=== PATIENT | female | born 1965 | race Caucasian/White ===

== ENCOUNTER 2020-10-05 23:54 | Emergency (ER) | payer OTHER ==
[~2020-10-05] VITALS: Ht 152.4 cm; Wt 62.3 kg
--- NOTE | ~2020-10-05 | EMS ---
[place] [address] EMS Patient Care Report Name: CECILY HOOK Room #: [facility]..#: [id number] Admission: Attend Phys: Discharge: Date of : 65 Report #: [id number] THIS REPORT FOR: //name// Report Transmitted: 10/05/2020 23:28 EMS Care Summary [place], [place]/[facility] Incident [id number] @ 10/05/2020 22:37 Incident Location [address] [place] [address] Patient CECILY HOOK Female, 55 Years 1965 Patient Address [address] [place] [address] Patient History Diabetes,Rheumatoid Arthritis, Patient Allergies Penicillin allergy,Sulfa, Chief Complaint HYPOGLYCEMIA Disposition Transported No Lights/[place] Dispatch Reason Diabetic Problem Transported To [facility] Narrative DISPATCHED TO A DIABETIC PROBLEM. ARRIVED ON SCENE TO BE LED TO FEMALE PATIENT IN THE BACK BEDROOM STANDING WITH HER HEAD DOWN ON THE BED BEING ASSESSED BY FIRE CREW. FAMILY STATED THAT WHEN THEY FOUND HER SHE WAS DIFFICULT TO ARROUSE. SHE IS A KNOWN DIABETIC AND FAMILY REPORTED BRINGING FOOD TO HER ABOUT TEN AM BUT WHEN THEY ARRIVED BACK AT THE HOUSE ABOUT ONE HOUR PRIOR TO EMS ARRIVAL THE FOOD WAS UNEATEN. THEY WERE ABLE TO GET HER TO DRINK A LITTLE JUICE BUT PATIENT [address] [address] EMS Patient Care Report Name: CECILY HOOK Room #: [facility]#: [id number] Admission: Attend Phys: Discharge: Date of : 65 Report #: [id number] REFUSED TO EAT FOR THEM. HER BLOOD GLUCOSE WAS CHECKED BY FIRE CREW PRIOR TO EMS ARRIVAL. SHE WAS COACHED IN EATING ORAL GLUCOSE AND DRINKING MORE SODA, BUT CONTINUED TO REFUSE TO EAT. PATIENT'S VITALS WERE OBTAINED AND HER BLOOD GLUCOSE WAS CHECKED. PATIENT WAS COACHED IN EATING AN ADDITIONAL ORAL GLUCOSE. HER VITALS WERE REASSESSED AND HER GLUCOSE LEVEL CHECKED AFTER TIME. PATIENT'S GLUCSE REMAINED LOW, SHE CONTINUED TO REFUSE TO EAT, AND SHE REMAINED CONFUSED. SHE WAS ASSISTED IN WALKING TO THE COT, SEATED, SECURED WITH STRAPS, AND MOVED TO THE AMBULANCE. PATIENT VITALS WERE REOBTAINED, SHE WAS PLACED ON A 3 LEAD, AND AN IV WAS ESTABLISHED. HER GLUCOSE WAS CHECKED AGAIN. SHE WAS TRANSPORTED TO THE HOSPITAL WITH VITALS AND INTERVENTIONS MONITORED. UPON ARRIVAL AT THE HOSPITAL PATIENT WAS MOVED INTO ED ROOM 8 ON THE COT AND LIFTED OVER TO THE HOSPITAL BED. PATIENT CARE WAS TURNED OVER TO ED NURSING STAFF. Initial Vitals @23:33P: 228,SpO2: 98, @23:41P: 69,BP: 127/61,CO: 2,SpO2: 98, @23:14P: 83,BP: 134/76,CO: 0,SpO2: 98, @23:31P: 81,BP: 153/60,Glucose: 145,CO: 3,SpO2: 97, @23:33P: 79, @23:03P: 79,Glucose: 39,CO: 5,SpO2: 95, @23:13P: 69,R: 16,BP: 169/140,Pain: 4/10,GCS: 14,Glucose: 36,SpO2: 99,Revised Trauma: 12,DE Suspected: false @22:52P: 79,R: 16,BP: 139/74,GCS: 14,SpO2: 96,Revised Trauma: 12, @23:48P: 76,R: 16,BP: 121/65,Pain: 4/10,GCS: 14,CO: 4,SpO2: 96,Revised Trauma: 12, @PTAGCS: 14,Glucose: 26, Assessments @23:48MENTAL:Person Oriented,Time Oriented,Place Oriented,SKIN:HEENT:Head/Face: No Abnormalities,Neck/Airway: No Abnormalities,LUNG SOUNDS:General: No Abnormalities,Left Upper: No Abnormalities,Right Upper: No Abnormalities,Left Lower: No Abnormalities,Right Lower: No Abnormalities,ABDOMEN:General: No Abnormalities,Left Upper: No Abnormalities,Right Upper: No Abnormalities,Left Lower: No Abnormalities,Right Lower: No Abnormalities,PELVIS//GI:No Abnormalities,EXTREMITIES:Capillary Refill: Right Upper: < 2 Sec,Left Arm: No Abnormalities,Right Arm: No Abnormalities,Left Leg: No Abnormalities,Right Leg: No Abnormalities,PULSE:Radial: 2+ Normal,NEURO:Slurred Speech, Impression Diabetic Hypoglycemia Procedures @22:48ALS AssessmentResponse: UnchangedSucceeded@22:49Oral Glucose - 31 Grams (gms) - OralResponse: Improved@23:36Saline Lock 0cc (20 ga) Site: Antecubital-RightResponse: UnchangedFailed@23:20Oral Glucose - 31 Grams (gms) - OralResponse: Improved@23:133-Lead ECGResponse: UnchangedSucceeded@23:38Saline 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,BP: / M,PULSE: ,RR: R,SPO2: Ox,ETCO2: ,B,PAIN: ,GCS: 14, 22:35,Call Received 22:35,Dispatch Notified 22:37,Dispatched 22:37,En Route 22:46,On Scene 22:48,At Patient 22:48,ALS Assessment,Response: UnchangedSucceeded, 22:49,Oral Glucose - 31 Grams (gms) - Oral,Response: Improved 22:52,BP: 139/74 M,PULSE: 79,RR: 16 R,SPO2: 96 Ox,ETCO2: ,BG: ,PAIN: ,GCS: 14, 23:03,BP: / M,PULSE: 79,RR: R,SPO2: 95 Ox,ETCO2: ,B,PAIN: ,GCS: , 23:13,3-Lead ECG,Response: UnchangedSucceeded, 23:13,BP: 169/140 M,PULSE: 69,RR: 16 R,SPO2: 99 Ox,ETCO2: ,B,PAIN: 4,GCS: 14, 23:14,BP: 134/76 M,PULSE: 83,RR: R,SPO2: 98 Ox,ETCO2: ,BG: ,PAIN: ,GCS: , 23:20,Oral Glucose - 31 Grams (gms) - Oral,Response: Improved 23:31,BP: 153/60 M,PULSE: 81,RR: R,SPO2: 97 Ox,ETCO2: ,B,PAIN: ,GCS: , 23:33,BP: / M,PULSE: 228,RR: R,SPO2: 98 Ox,ETCO2: ,BG: ,PAIN: ,GCS: , 23:33,BP: / M,PULSE: 79,RR: R,SPO2: Ox,ETCO2: ,BG: ,PAIN: ,GCS: , 23:36,Saline Lock 0cc 20 ga Site: Antecubital-Right,Response: UnchangedFailed, 23:38,Saline Lock 20cc 20 ga Site: Antecubital-Left,Response: UnchangedSucceeded, 23:39,Depart Scene 23:41,BP: 127/61 M,PULSE: 69,RR: R,SPO2: 98 Ox,ETCO2: ,BG: ,PAIN: ,GCS: , 23:48,BP: 121/65 M,PULSE: 76,RR: 16 R,SPO2: 96 Ox,ETCO2: ,BG: ,PAIN: 4,GCS: 14, 23:50,At Destination 00:03,Call Closed Disclaimer v1.1 Copyright 2020 [employer] This EMS Care Summary contains data elements from the applicable legal record (which may be displayed differently). It is designed to provide pertinent information for the following purposes: continuity of care, clinical quality, and state data reporting. The complete legal record is available to ED staff and administrators of the receiving hospital in [employer] Patient Tracker. All data is provided "as is."
[2020-10-06 00:44] LABS: ALBUMIN 3.3 g/dL (3.4-5.0); CALCIUM 8.8 mg/dL (8.5-10.1); TOTAL BILIRUBIN 0.2 mg/dL (0.2-1.0); TOTAL PROTEIN 6.3 g/dL (6.4-8.2)
[2020-10-06] MEDS ORDERED: METFORMIN HCL500 M3 PO (00:46)
[2020-10-06] MEDS ORDERED: PERCOCET 10-321 EAC1 PO (00:47)
[2020-10-06] MEDS ORDERED: GLYBURIDE 5 MG T5 M1 PO (00:48)
[2020-10-06] MEDS ORDERED: ORENCIA125 MG/1 M SUBQ (00:49)
[2020-10-06 00:50] LABS: ABSOLUTE NEUTROPHILS 11.3 thou/uL (1.4-8.2); BASOPHILS 0.3 % (0.0-2.0); EOSINOPHILS 0.2 % (0.0-3.0); HEMATOCRIT 40.1 % (37.0-47.0); HEMOGLOBIN 13.1 gm/dL (12.0-15.0); LYMPHOCYTES 5.5 % (24.0-44.0); MCH 28.8 pg (26.0-34.0); MCHC 32.5 g/dL (28.0-37.0); MCV 88.5 fL (80.0-100.0); MONOCYTES 5.3 % (1.0-8.0); PLATELET COUNT 322 thou/uL (150-400); POLYS 88.7 % (36.0-66.0); RBC 4.53 mil/uL (4.20-5.00); RDW 13.1 % (10.5-14.5); WBC 12.7 thou/uL (4.0-11.0)
[2020-10-06] MEDS ORDERED: NEXIUM40 M2 PO (00:50)
[2020-10-06 00:51] LABS: POTASSIUM 2.9 mmol/L (3.5-5.1)
[2020-10-06] MEDS ORDERED: LIPOFEN50 MG PO (00:51)
[2020-10-06 01:53] VITALS: BP 134/75
== END 2020-10-06 01:55 | disposition home or self-care (01) ==
LOC: ER 23:54
PROVIDERS: Emergency Medicine
DX: E11.649 Type 2 diabetes mellitus with hypoglycemia without coma (principal); J45.909 Unspecified asthma, uncomplicated; Z79.899 Other long term (current) drug therapy; Z88.0 Allergy status to penicillin; Z88.2 Allergy status to sulfonamides